=== PATIENT | female | born 1990 | race Caucasian/White ===

== ENCOUNTER 2017-10-01 21:26 | Emergency (ER) | payer OTHER ==
[~2017-10-01] VITALS: Ht 167.6 cm; Wt 66.0 kg
[2017-10-01] MEDS ORDERED: ACETAMINOPHEN 325MG TABLET PO STA (22:24)
[2017-10-01] MEDS ORDERED: KETOROLAC 60MG/2ML VIAL IM ONE (23:45)
[2017-10-02 02:20] VITALS: BP 111/74
== END 2017-10-02 02:29 | disposition home or self-care (01) ==
LOC: ER 22:14
DX: S52.691A Other fracture of lower end of right ulna, initial encounter for closed fracture (principal); S92.351A Displaced fracture of fifth metatarsal bone, right foot, initial encounter for closed fracture; E03.9 Hypothyroidism, unspecified; F17.200 Nicotine dependence, unspecified, uncomplicated; W51.XXXA Accidental striking against or bumped into by another person, initial encounter; Y93.83 Activity, rough housing and horseplay; Y92.89 Other specified places as the place of occurrence of the external cause; Y99.8 Other external cause status
CPT/HCPCS: 29105; 73080; 73090; 73130; 81025; 96372; 99284; J1885; J7030